=== PATIENT | female | born 2000 | race African-American/Black ===

== ENCOUNTER 2018-09-14 20:06 | Inpatient (IN) | payer MEDICAID ==
[~2018-09-14] VITALS: Ht 162.6 cm; Wt 104.3 kg
[2018-09-14 20:25] VITALS: BP 138/78
--- NOTE | 2018-09-14 20:30 | NUR ---
18 Y/O FEMALE BIB SELF WITH C/O SEVERE GENERALIZED BODY ACHES WITH 10/10 PAIN. HX CICKLECELL ANEMIA. PAIN CONSTANT X12 HRS. VSS UPON ED ARRIVAL. ER MD AWARE. CONTINUE TO MONITOR.
--- NOTE | 2018-09-14 20:30 | NUR ---
PT AMBULATED TO BED 11. Addendum: 09/14/18 at 2052 by [facility] PT AMBULATED TO BED 9.
[2018-09-14] MEDS ORDERED: diphenhydrAMINE 50 MG/ML VIAL IVP ONE ×2 (20:55→22:35)
[2018-09-14] MEDS ORDERED: MORPHINE SULFATE 4 MG/ML SYR IVP ONE (20:55)
[2018-09-14] MEDS ORDERED: NACL 0.9% 1,000 ML IV ONE (20:55)
[2018-09-14] MEDS ORDERED: ONDANSETRON 4 MG/2 ML VIAL IVP ONE ×2 (20:55→22:10)
--- NOTE | 2018-09-14 21:00 | NUR ---
PT IN BED RESTING WITH EYES OPEN. VSS. DR SCHAEFER AWARE. CONTINUE TO MONITOR.
--- NOTE | 2018-09-14 22:00 | NUR ---
PAIN SEVERE, MORPHINE AND BENADRYL GIVEN PER MD ORDERS. CONTINUE TO MONITOR.
[2018-09-14] MEDS ORDERED: MORPHINE SULFATE 10 MG/ML VIAL IVP ONE (22:10)
[2018-09-14 22:12] LABS: BASOPHILS % (AUTO) 0.4 % (0.0-2.0); EOSINOPHILS # (AUTO) 0.1 K/uL (0-0.4); HEMATOCRIT 32.5 % (36-48); HEMOGLOBIN 10.4 g/dL (12.0-16.0); LYMPHOCYTES # (AUTO) 2.6 K/uL (2.5-16.5); LYMPHOCYTES % (AUTO) 28.9 % (20.5-51.1); MEAN CORPUSCULAR HEMOGLOBIN 24 pg (27-31); MEAN CORPUSCULAR HGB CONC 32 g/dL (33-37); MEAN CORPUSCULAR VOLUME 76.5 fL (80-94); MONOCYTES # (AUTO) 0.5 K/uL (0.8-1.0); MONOCYTES % (AUTO) 5.6 % (1.7-9.3); NEUTROPHILS # (AUTO) 5.8 K/uL (1.8-7.7); NEUTROPHILS % (AUTO) 64.1 % (42.2-75.2); PLATELET COUNT (AUTO) 396 K/uL (140-450); RED BLOOD CELL COUNT(AUTO) 4.25 MIL/uL (4.20-5.40); RED CELL DISTRIBUTION WIDTH 19.1 % (11.6-13.7)
--- NOTE | 2018-09-14 22:20 | NUR ---
PT STATES PAIN IS SEVERE AND UNRELIEVED. DR SCHAEFER NOTIFIED. 10/29 PAIN. CONTINUE TO MONITOR.
--- NOTE | 2018-09-14 22:22 | NUR ---
PT MEDICATED PER DR SCHAEFER ORDERS. GIVEN MORPHINE AND BENADRYL. CONTINUE TO MONITOR.
[2018-09-14 22:24] LABS: ANION GAP 11.7 (8-16); CREATININE 0.9 mg/dL (0.6-1.3); POTASSIUM 3.7 mmol/L (3.5-5.1)
[2018-09-14 22:30] LABS: ALBUMIN 3.3 g/dL (3.4-5.0); TOTAL BILIRUBIN 0.2 mg/dL (0.0-1.0)
[2018-09-14 22:44] LABS: BARBITURATE, URINE NEG. ng/ml (NEG <=200); BENZODIAZEPINE, URINE NEG. ng/mL (NEG <=200); CANNABINOID, URINE NEG. ng/mL (NEG <=50); COCAINE, URINE NEG. ng/mL (NEG <=300); OPIATE, URINE NEG. ng/mL (NEG <=2000); PHENCYCLIDINE SCREEN,URINE NEG. ng/mL (NEG <=25)
--- NOTE | 2018-09-14 23:00 | NUR ---
PT STATES UNRELIEVED PAIN AND WORSE THAN WHEN SHE ARRIVED. DR SCHAEFER NOTIFED. CONTINUE TO MONITOR.
[2018-09-14] MEDS ORDERED: KETAMINE 10 MG/ML UD SYR **ER IVP ONE (23:20)
[2018-09-14] MEDS ORDERED: HYDR4TAB6 PO (23:22)
[2018-09-14] MEDS ORDERED: HYDR500C PO (23:22)
[2018-09-14] MEDS ORDERED: ACET-5636 PO (23:22)
[2018-09-14] MEDS ORDERED: FOLI1TAB89 PO (23:22)
[2018-09-14] MEDS ORDERED: BEN50 PO (23:22)
[2018-09-14] MEDS ORDERED: NACL 0.9% 1,000 ML IV SCH (23:32)
[2018-09-14] MEDS ORDERED: ACETAMINOPHEN 325 MG TAB PO PRN (23:35)
[2018-09-14] MEDS ORDERED: ONDANSETRON 4 MG/2 ML VIAL IM/IVP PRN (23:35)
[2018-09-14] MEDS ORDERED: HYDROcodone/APAP 5/325 MG 1 TAB TAB PO PRN (23:35)
[2018-09-14] MEDS ORDERED: MORPHINE SULFATE 2 MG/ML SYR IVP PRN (23:35)
[2018-09-14] MEDS ORDERED: DOCUSATE SODIUM 100 MG GELCAP PO PRN (23:35)
--- NOTE | 2018-09-14 23:40 | NUR ---
KEATMINE GIVEN PER MD ORDERS. KATAMINE MIXED IN 100ml NS. PT RECEIVED 70 ML. STARTEED AT 2300 AND ENDED AT 2636. SHE STATED NOT LIKING THE FEELING AND ASKED FOR MEDICATION TO BE STOPPED. VSS. VANESA SHCAEFER NOTIFIED. CONTINUE TO MONITOR.
[2018-09-15 00:05] LABS: FREE T4 (FREE THYROXINE) 1.01 ng/dL (0.76-1.46); PHOSPHORUS 4.5 mg/dL (2.5-4.9); THYROID STIMULATING HORMONE 0.72 uIU/mL (0.34-3.74)
--- NOTE | 2018-09-15 00:20 | NUR ---
REPORT GIVEN AND CARE TRANSFERED TO [facility] RN ROOM 120A. TRANSFERED VIA GURNEY WITH VSS.
--- NOTE | 2018-09-15 00:20 | NUR ---
RECEIVED BEDSIDE REPORT FROM ASSORTER LAUNDRYDEBBIE MATUTE. PT IS AAO X4. ON ROOM AIR RESPIRATIONS ARE EQUAL AND UNLABORED. PT IS AMBULATORY GAIT STEADY. SKIN IS INTACT. IV ON L HAND 22G SL AT THIS TIME. MRSA SWAB OBTAINED. VITAL SIGNS ARE STABLE. PT STATED SHE IS STARVING AND HAVING PAIN STATES IT IS GENERAL, "ALL OVER MY BODY!" WILL LOOK OVER ORDERS. PLAN OF CARE DISCUSSED WITH PT. WHITE BOARD UP DATED. ORIENTED PT TO STAFF ROOM AND VISITING HOURS. CALL LIGHT WITHIN REACH. WILL ROUND FREQUENTLY.
[2018-09-15 00:30] VITALS: BP 147/88
--- NOTE | 2018-09-15 00:40 | NUR ---
PT IS EATING SANDWICH. REQUESTING TO SPEAK TO DOCTOR. PAGED DR RUSSELL WILL SEE PT.
[2018-09-15] MEDS ORDERED: diphenhydrAMINE 50 MG/ML VIAL IVP ONE (01:15)
[2018-09-15] MEDS ORDERED: MORPHINE SULFATE 2 MG/ML SYR IVP PRN (01:20)
--- NOTE | 2018-09-15 01:30 | NUR ---
ADMINISTERED MORPHINE PER ORDERS FOR PAIN. PT STATES SHE WANTS DILAUDID 2MG Q2H. WILL CALL DR TO SEE PT. EXPLAINED PROTOCOL TO PT.
[2018-09-15] MEDS ORDERED: MORPHINE SULFATE 4 MG/ML SYR IVP ONE (01:50)
--- NOTE | 2018-09-15 01:50 | NUR ---
IN TO SEE PT EXPLAINED WE CAN INCREASE MORPHINE BUT STATES SHE WANTS A DIFFERENT MEDICATION. PT STATES SHE IS GOING TO LEAVE AMA. EXPLAINED RISK OF LEAVING PT VERBALIZED UNDERSTANDING. WILL GET AMA PAPERS READY. 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
--- NOTE | 2018-09-15 02:00 | NUR ---
PATIENT SIGN AMA PAPERS. VERBALIZED UNDERSTANDING OF LEAVING AMA. ARM BAND REMOVED AND IV REMOVED AND INTACT. PT HERE TO TAKE PT HOME. SIEVE MAKER WALKED PT OUT OF HOSPITAL. PT WITH STEADY GAIT. VS STABLE. SR.
== END 2018-09-15 02:00 | disposition left against medical advice (07) | DRG 662 ==
LOC: MED 20:06 → MTU 23:32
PROVIDERS: ADMIT General Practice; ATTEND General Practice
DX: D57.00 Hb-SS disease with crisis, unspecified (principal); E44.0 Moderate protein-calorie malnutrition; D50.9 Iron deficiency anemia, unspecified; Z53.21 Procedure and treatment not carried out due to patient leaving prior to being seen by health care provider; Z79.899 Other long term (current) drug therapy; Z88.0 Allergy status to penicillin; Z90.81 Acquired absence of spleen
CPT/HCPCS: 36415; 71045; 80053; 80305; 82150; 83036; 83540; 83605; 83615; 83690; 83735; 83880; 84100; 84134; 84439; 84443; 84484; 85025; 85045; 85610; 85730; 87081; 93005; 96374; 96375; 96376; 99285; J1200; J2270; J2405; J7030